=== PATIENT | male | born 1990 | race Caucasian/White ===

== ENCOUNTER 2019-03-02 21:58 | Emergency (ER) | payer OTHER ==
[~2019-03-02] VITALS: Ht 175.3 cm; Wt 90.0 kg
[2019-03-02] MEDS ORDERED: VICO5TAB17 PO (22:05)
[2019-03-02] MEDS ORDERED: CIPR5SUS PO (22:05)
[2019-03-02] MEDS ORDERED: KETOROLAC 30 MG/ML VIAL (J1885) IV ONE (22:30)
[2019-03-02] MEDS ORDERED: TAMSULOSIN 0.4 MG CAP PO ONE (22:30)
[2019-03-02] MEDS ORDERED: ONDANSETRON 4MG/2ML VIAL (J2405) IV ONE (22:30)
[2019-03-02] MEDS ORDERED: NS 1,000 ML IV ONE (22:30)
[2019-03-02] MEDS ORDERED: ZOFR4TAB16 PO (23:32)
[2019-03-02 23:36] VITALS: BP 128/58
== END 2019-03-02 23:51 | disposition home or self-care (01) ==
LOC: M ED 21:58
DX: N21.1 Calculus in urethra (principal)
CPT/HCPCS: 96361; 96374; 96375; 99283; J1885; J2405